=== PATIENT | male | born 1950 | race Caucasian/White ===

== ENCOUNTER 2020-03-12 07:52 | Outpatient (REF) | payer MEDICARE, SELFPAY ==
--- NOTE | 2020-03-12 | PFT_ITS ---
FLOWS: FEV1 of 73% of predicted at 2.12 L. FVC 77% of predicted at 3.03 L. FEV1 to FVC ratio of 0.70. No bronchodilator response. LUNG VOLUMES: Total lung capacity at 5.79 L. Residual volume 124% of predicted at 2.87 L. Slow vital capacity 70% of predicted at 2.92 L. Expiratory reserve volume 25% of predicted at 0.27 L. Diffusion capacity is mildly decreased. IMPRESSION: Moderate obstructive ventilatory defect with no bronchodilator response. Increased residual volume suggests air trapping. Decreased expiratory reserve volume suggests extrathoracic restriction likely secondary to abdominal obesity. Decreased diffusion capacity suggests emphysema. MD KARISSA Hendrickson/MODL / [id number] MTDD
== END 2020-03-12 07:53 | disposition home or self-care (01) ==
LOC: HO.RESP 07:52
PROVIDERS: PCP Internal Medicine; Visit Provider Internal Medicine
DX: Z87.891 Personal history of nicotine dependence (principal)
CPT/HCPCS: 94060; 94727; 94729

== ENCOUNTER 2023-06-30 08:19 | Outpatient (REF) | payer MEDICARE, SELFPAY ==
[2023-06-30 17:05] LABS: Alanine Aminotransferase 25 U/L (0-40); Albumin Level 4.3 g/dL (3.5-5.0); Alkaline Phosphatase 78 U/L (39-117); Anion Gap 13 (12-20); Aspartate Amino Transferase 20 U/L (5-37); Bilirubin Total 0.7 mg/dL (0.0-1.0); Blood Urea Nitrogen 27 mg/dL (9-16); Carbon Dioxide 24 mmol/L (22-29); Chloride 103 mmol/L (96-108); Cholesterol 146 mg/dL (<200); Estimated Glomerular Filt Rate > 60; Glucose Random 74 mg/dL (60-115); HDL Cholesterol 51 mg/dL (>40); LDL Cholesterol Calculated 79 mg/dL (<100); Potassium 4.4 mmol/L (3.3-5.1); Sodium 136 mmol/L (135-145); Total Protein 7.4 g/dL (6.5-8.0); Triglycerides 82 mg/dL (<150)
== END 2023-06-30 08:20 | disposition home or self-care (01) ==
LOC: HO.CHCLDS 08:19
PROVIDERS: Visit Provider Internal Medicine
DX: E78.2 Mixed hyperlipidemia (principal)
CPT/HCPCS: 36415; 80053; 80061

== ENCOUNTER 2024-12-26 10:03 | Outpatient (REF) | payer MEDICARE, SELFPAY ==
--- OUTSIDE RECORDS SUMMARY | 2024-12-26 08:45 | XMS_ITS | Encounter Summary ---
Author Organization [employer] Address [address] [facility] 7t [place] [address] Care Team Providers Care Vp Director Of Finance Name Role Phone Juan Luis Bryant MD Primary Care Prov ider Encounter Details Date Type Department Care Team ([facility] st Contact Info) Description 12/26/2024 8:45 AM EDT Office Visit [facility] [address] [place], [place] [phone] Juan Luis Bryant MD [address] [place] [address] Primary hypertension (Primary Dx); Essential hypertension; Mixed hyperlipidemia; Muscle spasm Social History Tobacco Use Types Packs/Day Years Used Date Smoking Tobacco: Never Smokeless Tobacco: Never Depression Answer Date Recorded Patient Health Questionnaire-9 Score 0 12/26/2024 Patient Health Questionnaire-9 Score 0 12/26/2024 Last PHQ-9: Questionnaire Data Not on file 1 Housing Stability Answer Date Recorded What is your housing situation today? I have poncho sands 12/26/[address] you li ve. Do you have problems with any of the following? None of the above 12/26/2024 Food Insecurity Answer Date Recorded Within the past 12 months, y ou worried that your food would run out before you got money to buy more: Never True 12/26/2024 Within the past 12 months,th e food you bought just didn't last and you didn't have enough money to get more: Never True Transportation Answer Date Recorded In the past 12 months, has l ack of transportation kept you from medical appts, meetings, work or from getting things needed for daily living? No 12/26/2024 Utilities Answer Date Recorded In the past 12 months, has t he electric, gas, oil or water company threatened to shut off services in your home? No 12/26/2024 Depression Answer Date Recorded Patient Health Questionnaire-2 Score 0 12/26/2024 Internet Access Answer Date Recorded Internet Access Q1 Yes 12/26/2024 Internet Access Q2 Not on file 12/26/2024 Sex and Gender Information Value Date Recorded Sex Assigned at Male 01/05/2022 10:27 AM EDT Legal Sex Male 10:27 AM EDT Gender Identity Male 01/05/2022 10:27 AM EDT Sexual Orientation Straight 01/05/2022 10 :27 AM EDT documented as of this encounter Last Filed Vital Signs Vital Sign Reading Time Taken Comments Blood Pressure 122/70 12/26/2024 9:14 AM EDT Pulse 80 12/26/2024 9:14 AM EDT Temperature 36.8 C (98.3 F) 12/26/2024 9:14 AM EDT Respiratory Rate 16 12/26/2024 9:14 AM EDT Oxygen Saturation - - Inhaled Oxygen Concentration - - Weight 119 kg (263 lb) 12/26/2024 9:14 AM EDT Height 172.7 cm (5' 8 ) 12/26/2024 9:14 AM EDT Body Mass Index 39.99 12/26/2024 9:14 AM EDT documented in this encounter Functional Status * Over the past 2 weeks, how often have you been bothered by any of the following problems? Question Answer Date of Assessment Author Patient Health Questionnaire-2 Score 0 12/07 9:15 AM EDT Anita Joseph MA * Little interest or pleasure in doing things Answer Date of Assessment Author Not at all 12/26/2024 9:15 AM EDT Rona Joseph MA * Feeling down, depressed, or hopeless Answer Date of Assessment Author Not at all 12/26/2024 9:15 AM EDT Rona Joseph MA * Trouble falling or staying asleep, or sleeping too much Answer Date of Assessment Author Not at all 12/26/2024 9:15 AM EDT Rona Joseph MA * Feeling tired or having little energy Answer Date of Assessment Author Not at all 12/26/2024 9:15 AM Rona Mills MA * Poor appetite or overeating Answer Date of Assessment Author Not at all 12/26/2024 9:15 AM Rona Mills MA * Feeling bad about yourself - or that you are a failure or have let yourself or your family down Answer Date of Assessment Author Not at all 12/26/2024 9:15 AM Rona Mills MA * Trouble concentrating on things, such as reading the newspaper or watching television Answer Date of Assessment Author Not at all 12/26/2024 9:15 AM Rona Mills MA * Moving or speaking so slowly that other people could have noticed? Or the opposite - being so fidgety or restless that you have been moving around a lot more than usual. Answer Date of Assessment Author Not at all 12/26/2024 9:15 AM Rona Mills MA * Thoughts that you would be better off or hurting yourself in some way Answer Date of Assessment Author Not at all 12/26/2024 9:15 AM Rona Mills MA * Patient Health Questionnaire-9 Score Answer Date of Assessment Author 0 12/26/2024 9:15 AM Rona Mills MA documented as of this encounter Progress Notes * Juan Luis Grewal MD - 12/26/2024 8:45 AM EDT Subjective Patient ID: Ganesh Vallejo is a 74 y.o. male who presents for No chief complaint on file.. Hypertension This is a chronic problem. The problem is controlled. Pertinent negatives include no chest pain, headaches, palpitations or shortness of breath. Review of Systems Respiratory: Negative for shortness of breath. Cardiovascular: Negative for chest pain and palpitations. Neurological: Negative for headaches. Objective Physical Exam Constitutional: Appearance: Normal appearance. Cardiovascular: Rate and Rhythm: Normal rate. Heart sounds: No murmur heard. Pulmonary: Effort: Pulmonary effort is normal. No respiratory distress. Breath sounds: No stridor. No wheezing or rhonchi. Neurological: General: No focal deficit present. Mental Status: He is alert and oriented to person, place, and time. Psychiatric: Mood and Affect: Mood normal. Behavior: Behavior normal. Assessment/Plan Problem List Items Addressed This Visit Primary hypertension - Primary Relevant Orders CBC auto differential Comprehensive Metabolic Panel Lipid Panel, Standard TSH W/Reflex to FT4 Mixed hyperlipidemia On statin therapy, will order new blood test Essential hypertension Controlled, keep low sodium diet and exercise as tolerated Other Visit Diagnoses Muscle spasm Relevant Medications meloxicam (Mobic) 15 MG tablet documented in this encounter Miscellaneous Notes * Assessment & Plan Note - Juan Luis Grewal MD - 12/26/2024 9:44 AM EDTAssociated Problem(s): Mixed hyperlipidemia On statin therapy, will order new blood test * Assessment & Plan Note - Juan Luis Grewal MD - 12/26/2024 9:38 AM EDTAssociated Problem(s): Essential hypertension Controlled, keep low sodium diet and exercise as tolerated documented in this encounter Plan of Treatment Scheduled Orders Name Type Priority Associated Diagnoses Orde r Schedule CBC auto differential Lab Routine Primary hypertension Expected: 12/26/2024 (Approximate), Expires: 12/26/2025 Comprehensive Metabolic Panel Lab Routine Primary hypertension Expected: 12/26/2024 (Approximate), Expires: 12/26/2025 Lipid Panel, Standard Lab Routine Primary hypertension Expected: 12/26/2024 (Approximate), Expires: 12/26/2025 TSH W/Reflex to FT4 Lab Routine Primary hypertension Expected: 12/26/2024 (Approximate), Expires: 12/26/2025 documented as of this encounter Visit Diagnoses Diagnosis Primary hypertension- Primary Unspecified essential hypertension Essential hypertension Unspecified essential hypertension Mixed hyperlipidemia Muscle spasm Spasm of muscle documented in this encounter Additional Health Concerns Assessment Noted Time PHQ-9 Depression Total Score: 0 12/27/19 25 9:15 AM EDT documented as of this encounter Care Teams Vp Director Of Finance Relationship Specialty Start Date End Date ChongJuan Luis Dewitt MD [address] [place] [id number] PCP - General Internal Medicine 05/11/23 documented as of this encounter
--- OUTSIDE RECORDS SUMMARY | 2024-12-26 11:49 | XMS_ITS | Encounter Summary ---
Author Organization [employer] Address [address] [facility] 7[address] [place] [address] Care Team Providers Care Business Economist Name Role Phone Juan Luis Bryant MD Primary Care Prov ider Reason for Visit * Reason Onset Date Comments Medication Question 12/31/2023 Encounter Details Date Type Department Care Team ([facility] st Contact Info) Description 12/31/2023 Telephone [facility] [address] [place] [address] Juan Luis Bryant MD [address] [place] [address] Medication Question Social History Tobacco Use Types Packs/Day Years Used Date Smoking Tobacco: Never Smokeless Tobacco: Never Depression Answer Date Recorded Patient Health Questionnaire-9 Score 0 07/23/2023 Patient Health Questionnaire-9 Score 0 07/23/2023 Last PHQ-9: Questionnaire Data Not on file 0 07/23/2023 Housing Stability Answer Date Recorded What is your housing situation today? I have poncho sands 01/05/[address] you li ve. Do you have problems with any of the following? None of the above 01/05/2023 Food Insecurity Answer Date Recorded Within the past 12 months, y ou worried that your food would run out before you got money to buy more: Never True 01/05/2023 Within the past 12 months,th e food you bought just didn't last and you didn't have enough money to get more: Never True Transportation Answer Date Recorded In the past 12 months, has l ack of transportation kept you from medical appts, meetings, work or from getting things needed for daily living? No 01/05/2023 Utilities Answer Date Recorded In the past 12 months, has t he electric, gas, oil or water company threatened to shut off services in your home? No 01/05/2023 Depression Answer Date Recorded Patient Health Questionnaire-2 Score 0 07/23/2023 Sex and Gender Information Value Date Recorded Sex Assigned at Male 01/05/2022 10:27 AM EDT Legal Sex Male 10:27 AM EDT Gender Identity Male 01/05/2022 10:27 AM EDT Sexual Orientation Straight 01/05/2022 10 :27 AM EDT documented as of this encounter Miscellaneous Notes * Telephone Encounter - Pepe Rocha RN - 01/03/2024 11:10 AM EDT Returned call below. Spoke with pt who report that PCP prescribed him Cialis 10 mg tablet and was told to take 0.5 tablet (5 mg) daily and to take full tablet if he is going to be sexually active (instructions only say to take 1/2 tab daily). Pt reported that the pharmacy only gave him 30 tablets instead of the 60 tablets that was ordered. Has enough to get through mid January. Pt has been taking 1/2 tab x 6 days and one full tab x 1 day/weekly. Pt also reported that he has Viagra at home as well if he runs out of the Cialis. Advised that message will be sent to PCP to review and advise. * Telephone Encounter - Anuj Camarillo - 12/31/2023 8:09 AM EDT Tc from pt requesting tadalafil (Cialis) 10 MG tablet stating he is running short and will not makeit till February. If any questions please contact pt at [phone]. documented in this encounter Plan of Treatment Not on file documented as of this encounter Visit Diagnoses Not on filedocumented in this encounter Additional Health Concerns Assessment Noted Time PHQ-9 Depression Total Score: 0 07/23/19 24 8:50 AM EDT documented as of this encounter Care Teams Business Economist Relationship Specialty Start Date End Date Juan Luis Bryant MD [address] [place] [phone] PCP - General Internal Medicine 05/11/23 documented as of this encounter
--- OUTSIDE RECORDS SUMMARY | 2024-12-26 11:50 | XMS_ITS | Clinical Summary ---
Author Organization [employer] Address [address] [facility] 7t [place] [address] Care Team Providers Care Scheduler Name Role Phone Juan Luis Bryant MD Primary Care Prov ider Allergies Active Allergy Reactions Criticality Noted Date Comments Amlodipine 06/05/2015 Other reaction(s): Edema Lower Extremities Medications albuterol (Ventolin HFA) 108 (90 Base) MCG/ACT inhaler Inhale 2 puffs every 6 (six) hours if needed for wheezing. 18 g 11 3 Active tadalafil (Cialis) 20 MG tabletIndications :Vasculogenic erectile dysfunction, unspecified vasculogenic erectile dysfunction type TAKE 1 TABLET BY MOUTH EVERY DAY 30 tablet 2 5 Active atorvastatin (Lipitor) 40 MG tablet TALE 1 TABLET BY MOUTH EVERY MORNING 90 tablet 3 5 Active chlorthalidone (Hygroton) 25 MG tablet TAKE 1 TABLET BY MOUTH EVERY MORNING 90 tablet 3 5 Active lisinopril 40 MG tablet TAKE 1 TABLET BY MOUTH EVERY MORNING 90 tablet 3 5 Active meloxicam (Mobic) 15 MG tablet Take 1 tablet (15 mg) by mouth Once per day. 30 tablet 1 5 02/25/20 25 Active cyclobenzaprine (Flexeril) 10 MG tablet Take 1 tablet (10 mg) by mouth 3 times daily for 10 days. 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 Primary hypertension 01/12/2023 Assessment & Plan (04/17/2024 9:50 AM EST): On the upper limit, he refers at home it remains below 130/80, told to keep low sodium diet, exercise as tolerated, keep bp log, follow up in 3 months Assessment & Plan (01/26/2024 10:55 AM EST): Controlled, continue low sodium diet and exercise as tolerated, keep bp log, follow up in 3 months Assessment & Plan (10/11/2023 1:49 PM EDT): Controlled, keep lisinopril/hydrochlorothiazide, he has lost about 30lbs, keep bp monitor in case he needs his bp meds to be adjusted in the future Assessment & Plan (07/23/2023 10:47 AM EDT): Controlled, he has been exercising twice a week, refers has lost over 10lbs, continue low sodium diet, keep bp log, follow up in 4 months Assessment & Plan (06/22/2023 9:37 AM EDT): Above target, he is on lisinopril 40mg and chlorthalidone 25mg, keep low sodium diet and exercise as tolerated, he will join a exercise program, will follow up in 1 month, id still elevated would consider adding another agent Assessment & Plan (04/13/2023 4:16 PM EST): Controlled, reinforced low sodium diet and exercise as tolerated, continue chlorthalidone and lisinopril, follow up in 4 months Labs done at [facility] on 01/2023, not on chart will request Assessment & Plan (01/12/2023 5:28 PM EST): Controlled, no changes will be made, reinforced low sodium diet and exercise as tolerated Screening for prostate cancer 01/12/2023 Assessment & Plan (01/26/2024 10:57 AM EST): PSA will be ordered Assessment & Plan (01/12/2023 5:29 PM EST): Will order psa Immunization due 01/12/2023 Screening for colon cancer 01/12/2023 Assessment & Plan (01/12/2023 5:28 PM EST): Patient refused colonoscopy, he understands the risk Physical exam 01/12/2023 Diverticulitis 01/18/2018 Hyperlipidemia 01/18/2018 Assessment & Plan (01/26/2024 10:56 AM EST): On atorvastatin, new labs will be ordered for guidance of therapy Essential hypertension 01/18/2018 Assessment & Plan (12/26/2024 9:38 AM EDT): Controlled, keep low sodium diet and exercise as tolerated Encounters Date Type Department Care Team Description 12/26/2024 8:45 AM EDT Office Visit [facility] [address] [place] [address] Juan Luis Bryant MD Primary hypertension (Primary Dx); Essential hypertension; Mixed hyperlipidemia; Muscle spasm 12/26/2024 Travel 12/25/2024 Telephone [facility] [address] [place] [address] Juan Luis Bryant MD Chart Prep 11/21/2024 9:00 AM EDT Office Visit [facility] [address] [place] [phone] Makonahally, Deviprasad, BDS Ill-fitting dentures (Primary Dx) 11/18/2024 Travel 10/31/2024 9:45 AM EDT Office Visit [facility] [address] [place] [phone] Makonahally, Deviprasad, BDS 10/24/2024 8:30 AM EDT Office Visit [facility] [address] [place] [phone] Makonahally, Deviprasad, BDS from Last 3 Months Immunizations Immunization Administration Dates Next Due Influenza High-dose Quadriva lent Preservative Free 01/12/2023,12/24/2021,11/27/2020,11/27 Influenza injectable quadriv alent IIV4 with preservative 12/09/2016,12/20/2014 Influenza injectable quadriv alent preservative free 11/25/2015 Influenza, High Dose Seasona l, Preservative Free 11/22/2023,12/09/2017 Influenza, trivalent, adjuvanted 12/05/2018 Pneumococcal Conjugate PCV 13 01/02/2015 Pneumococcal Polysaccharide PPSV23 12/20/2015 RSV Adjuvant 01/18/2023 Tdap 08/20/2015 Zoster, live 06/15/2016 Social History Tobacco Use Types Packs/Day Years Used Date Smoking Tobacco: Never Smokeless Tobacco: Never Tobacco Cessation:Counseling Given: Not Answered Depression Answer Date Recorded Patient Health Questionnaire-9 [...] Orientation Straight 01/05/2022 10 :27 AM EDT Last Filed Vital Signs Vital Sign Reading [...] Mass Index 39.99 12/26/2024 9:14 AM EDT Plan of Treatment Health Maintenance Due Date Last Done Comments CT Colonography 1949 Dental Prophylaxis 1950 FIT DNA/Cologuard 1950 FIT 1950 FOBT 1950 Sigmoidoscopy 1950 Hepatitis C Screening 09/14/1967 Dental X-Ray: Bitewings 09/02/2015 08/31/2014 Zoster Vaccines (2 of 3) 08/10/2016 06/15/2016 Colonoscopy 11/06/2020 11/07/2015 Colorectal Cancer Screening 11/06/2020 Dental Oral Exam 06/24/2023 12/22/2022, 08/31/2014 COVID-19 Vaccine ( season) 2024 11/22/2023, 10/02/2021, 01/14/2021, Additional history exists Influenza Vaccine (#1) 2024 , 01/12/2023, 12/24/2021, Additional history exists Alcohol/Substance Use Screening 04/17/2025 04/17/2024 DTaP/Tdap/Td Vaccines (2 - Td or Tdap) 08/19/2025 08/20/2015 Tobacco Screening 11/21/2025 11/21/2024 Dental X-Ray: Full Mouth 12/18/2025 12/17/2022, 08/07 Depression Screening 12/26/2025 12/26/2024, 12/27/19 25 SDOH Screening 12/26/2025 12/26/2024 Lipid Panel 02/06/2029 02/07/2024, 06/07, 07/14/2021 Pneumococcal Vaccine: 50+ Years Completed 12/20/2015, 01/02/2015 RSV Patients and Patients Aged 60 years or older Completed 01/18/2023 HIB Vaccines Aged Out No longer eligi ble based on patient's age to complete this topic HPV Vaccines Aged Out No longer eligi ble based on patient's age to complete this topic Hepatitis A Vaccines Aged Out No long er eligible based on patient's age to complete this topic Hepatitis B Vaccines Aged Out No long er eligible based on patient's age to complete this topic IPV Vaccines Aged Out No longer eligi ble based on patient's age to complete this topic Meningococcal B Vaccine Aged Out No l onger eligible based on patient's age to complete this topic Meningococcal Vaccine Aged Out No hannah ari eligible based on patient's age to complete this topic RSV under 20 months Aged Out No longe r eligible based on patient's age to complete this topic Rotavirus Vaccines Aged Out No longer eligible based on patient's age to complete this topic Procedures Procedure Name Priority Date/Time Associated Diagnosis Comments RE-EVAL - POST-OP OFFICE VISIT Routine 11/21/2024 9:00 AM EDT REPAIR BROKEN COMPLETE DENTURE BASE, MAX Routine 10/31/2024 9:45 AM EDT LIMITED ORAL EVALUATION - PROBLEM FOCUSED Routine 10/24/2024 8:30 AM EDT CASE PRESENTATION, DETAILED AND EXTENSIVE TREATMENT PLANNING Routine 10/24/2024 8:30 AM EDT DENTURE IMPRESSION Routine 10/24/2024 8: 30 AM EDT LIPID PANEL, STANDARD Routine 02/07/2024 Primary hypertension COMPREHENSIVE ORAL EVALUATION - NEW OR ESTABLISHED PATIENT Routine 12/22/2022 9:00 AM EDT PANORAMIC RADIOGRAPHIC IMAGE Routine 12/17/2022 1:15 PM EDT HM COLONOSCOPY Routine 11/07/2015 2:55 PM EDT INTRAORAL - COMPLETE SERIES OF RADIOGRAPHIC IMAGES Routine 08/31/2014 12:00 AM EDT from Last 3 Months or Most Recently Relevant to Health Maintenance Results * Lipid Panel, Standard (02/07/2024) Blood Venous blood specimen / Unknown Juan Luis Grewal MD LAB BLOOD ORDERABL ES Final Result [facility] [address] [place] [address] [phone] * Colonoscopy (11/07/2015 2:55 PM EDT) Venkat Carey MD HEALTH MAINTENANCE Final Result from Last 3 Months or Most Recently Relevant to Health Maintenance Insurance HSN FULL [employer] PPO DENTAL - HSN FULL (MEDICAID) DENTAL - HU[employer]NA DENTAL Care Teams Scheduler Relationship Specialty Start Date End Date Juan Luis Bryant MD [address] [place] [phone] PCP - General Internal Medicine 05/11/23
--- OUTSIDE RECORDS SUMMARY | 2024-12-26 11:50 | XMS_ITS | Encounter Summary ---
Author Organization [employer] Address [address] [facility] 7t [place] [address] Care Team Providers Care Music Industry Intern Name Role Phone Juan Luis Bryant MD Primary Care Prov ider Encounter Details Date Type Department Care Team (Latest Contact Info) Description 12/26/2024 Travel Social History Tobacco Use Types Packs/Day Years [...] AM EDT documented as of this encounter Functional Status * Over the past 2 weeks, how often have you been bothered by any of the following problems? Question Answer Date of Assessment Author Patient Health Questionnaire-2 Score 0 12/07 9:15 AM Anita Mills MA * Little interest or pleasure in doing things Answer Date of Assessment Author Not at all 12/26/2024 9:15 AM Rona Mills MA * Feeling down, depressed, or hopeless Answer Date of Assessment Author Not at all 12/26/2024 9:15 AM Rona Mills MA * Trouble falling or staying asleep, or sleeping too much Answer Date of Assessment Author Not at all 12/26/2024 9:15 AM Rona Mills MA * Feeling tired or having little [...] 9:15 AM EDT Rona Joseph MA * Patient Health Questionnaire-9 Score Answer Date of Assessment Author 0 12/26/2024 9:15 AM EDT Rona Joseph MA documented as of this encounter Plan of Treatment Not on file documented as of this encounter Visit Diagnoses Not on filedocumented in this encounter Additional Health Concerns Assessment Noted Time PHQ-9 Depression Total Score: 0 12/27/19 9:15 AM EDT documented as of this encounter Care Teams Music Industry Intern Relationship Specialty Start Date End Date Juan Luis Bryant MD [address] [place] [phone] PCP - General Internal Medicine 05/11/23 documented as of this encounter
--- OUTSIDE RECORDS SUMMARY | 2024-12-26 11:50 | XMS_ITS | Encounter Summary ---
Author Organization [employer] Address [address] [facility] [address] [place] [address] Care Team Providers Care Historic Sites Supervisor Name Role Phone Juan Luis Bryant MD Primary Care Prov ider Juan Luis Bryant MD Primary Care Prov ider Encounter Details Date Type Department Care Team (Late st Contact Info) Description 09/15/2022 Orders Only [facility] MEDICINE [address] [place] [address] Cece Youngblood LPN Social History Tobacco Use Types Packs/Day Years Used Date Smoking Tobacco: Never Assessed Sex and Gender Information Value Date Recorded Sex Assigned at Male 01/05/2022 10:27 AM EDT Legal Sex Male 10:27 AM EDT Gender Identity Male 01/05/2022 10:27 AM EDT Sexual Orientation Straight 01/05/2022 10 :27 AM EDT documented as of this encounter Plan of Treatment Not on file documented as of this encounter Visit Diagnoses Not on filedocumented in this encounter Care Teams Historic Sites Supervisor Relationship Specialty Start Date End Date Juan Luis Bryant MD [address] [place] [address] PCP - General Internal Medicine 08/01/19 05/09/23 Juan Luis Bryant MD [address] [place] [address] PCP - General Internal Medicine 05/11/23 documented as of this encounter
--- OUTSIDE RECORDS SUMMARY | 2024-12-26 11:50 | XMS_ITS | Encounter Summary ---
Author Organization [employer] Address [address] [facility] [address] [place] [address] Care Team Providers Care Marine Equipment Sales Engineer Name Role Phone Juan Luis Bryant MD Primary Care Prov ider Encounter Details Date Type Department Care Team ([facility] st Contact Info) Description 06/18/2023 Orders Only [facility] MEDICINE [address] [place] [address] ProviderVenkat MD Social History Tobacco Use Types Packs/Day Years Used Date Smoking Tobacco: Never Smokeless Tobacco: Never Housing Stability Answer Date Recorded What is [...] off services in your home? No 01/05/2023 Sex and Gender Information Value Date Recorded Sex Assigned at Male 01/05/2022 10:27 AM EDT Legal Sex Male 10:27 AM EDT Gender Identity Male 01/05/2022 10:27 AM EDT Sexual Orientation Straight 01/05/2022 10 :27 AM EDT documented as of this encounter Plan of Treatment Not on file documented as of this encounter Procedures Procedure Name Priority Date/Time Associated Diagnosis Comments HM COLONOSCOPY Routine 11/07/2015 2:55 PM EDT documented in this encounter Results * Hm Colonoscopy (11/07/2015 2:55 PM EDT) Historical Provider HEALTH MAINTENANCE Final Result documented in this encounter Visit Diagnoses Not on filedocumented in this encounter Care Teams Marine Equipment Sales Engineer Relationship Specialty Start Date End Date ChongJuan Luis Dewitt MD [address] [place] [id number] PCP - General Internal Medicine 05/11/23 documented as of this encounter
--- OUTSIDE RECORDS SUMMARY | 2024-12-26 11:50 | XMS_ITS | Encounter Summary ---
Author Organization [employer] Address [address] [facility] [address] [place] [address] Care Team Providers Care Balloon Dipper Name Role Phone Juan Luis Bryant MD Primary Care Prov ider Reason for Visit * Reason Onset Date Comments Chart Prep 12/25/2024 Encounter Details Date Type Department Care Team ([facility] st Contact Info) Description 12/25/2024 Telephone [facility] [address] [place], [place] [id number] Juan Luis Bryant MD [address] [place] [address] Chart Prep Social History Tobacco Use Types Packs/Day Years [...] encounter Miscellaneous Notes * Telephone Encounter - Lou Camarillo [place] - 12/25/2024 9:58 AM EDT Chart Prep Labs: done Images: not applicable Referrals: not applicable Vaccines due: Covid, Flu, and Zoster Screenings: colonoscopy Overdue care gaps: SDOH and PHQ-9 documented in this encounter Plan of Treatment Not on file documented as of this encounter Visit Diagnoses Not on filedocumented in this encounter Additional Health Concerns Assessment Noted Time PHQ-9 Depression Total Score: 0 07/23/19 8:50 AM EDT documented as of this encounter Care Teams Balloon Dipper Relationship Specialty Start Date End Date Juan Luis Bryant MD [address] [place] [address] [place] [id number] PCP - General Internal Medicine 05/11/23 documented as of this encounter
[2024-12-26 14:48] LABS: MANUAL DIFF FLAG NO
[2024-12-26 14:55] LABS: Hematocrit 35.3 % (42.0-52.0); Hemoglobin 11.2 g/dl (14.0-18.0); Imm Gran Abs Auto 0.04 X10*3/uL (0.00-0.03); Imm Gran Pct Auto 0.4 % (0.0-0.4); Lymphocytes Absolute Auto 3.1 X10*3/uL (1.2-4.9); Mean Corpuscular HGB Conc 31.7 g/dl (31.0-36.0); Mean Corpuscular Hemoglobin 29.3 pg (27.0-33.0); Mean Corpuscular Volume 92.4 fL (80.0-98.0); NRBC Abs Auto 0.000 X10*3/uL (0.0-0.012); NRBC Pct Auto 0.0 /100WBC (0.0-0.2); Platelet Count 334 X10*3/uL (160-400); Red Blood Count 3.82 X10*6/uL (4.60-5.80); White Blood Count 10.7 X10*3/uL (4.8-10.8)
[2024-12-26 17:44] LABS: Anion Gap 11 (12-20)
[2024-12-26 17:48] LABS: Alanine Aminotransferase 22 U/L (0-40); Albumin Level 4.2 g/dL (3.5-5.0); Alkaline Phosphatase 71 U/L (39-117); Aspartate Amino Transferase 27 U/L (5-37); Blood Urea Nitrogen 41 mg/dL (9-16); Calcium 9.4 mg/dL (8.4-10.2); Carbon Dioxide 26 mmol/L (22-29); Chloride 107 mmol/L (96-108); Cholesterol 144 mg/dL (<200); Estimated Glomerular Filt Rate 57; HDL Cholesterol 54 mg/dL (>40); Potassium 4.5 mmol/L (3.3-5.1); Sodium 139 mmol/L (135-145); Total Protein 6.8 g/dL (6.5-8.0); Triglycerides 100 mg/dL (<150)
== END 2024-12-26 10:04 | disposition home or self-care (01) ==
LOC: HO.CHCLDS 10:03
PROVIDERS: Visit Provider Internal Medicine
DX: I10 Essential (primary) hypertension (principal)
CPT/HCPCS: 36415; 80053; 80061; 84443; 85025